=== PATIENT | female | born 1985 | race African-American/Black ===

== ENCOUNTER 2020-10-03 14:07 | Emergency (ER) | payer OTHER ==
[~2020-10-03] VITALS: Ht 172.7 cm; Wt 77.0 kg
[2020-10-03] MEDS ORDERED: HYDROCODONE/ACETAMINOPHEN 5/325MG TABLET PO ONE (16:30)
[2020-10-03] MEDS ORDERED: HYDR-4346 MT (18:28)
[2020-10-03 18:41] VITALS: BP 120/78
== END 2020-10-03 18:41 | disposition home or self-care (01) ==
LOC: ER 14:07
DX: S13.4XXA Sprain of ligaments of cervical spine, initial encounter (principal); M25.561 Pain in right knee; M25.571 Pain in right ankle and joints of right foot; M54.5 Low back pain; M79.604 Pain in right leg; V98.8XXA Other specified transport accidents, initial encounter; Y93.89 Activity, other specified; Y92.89 Other specified places as the place of occurrence of the external cause; Y99.8 Other external cause status
CPT/HCPCS: 72040; 73560; 73600; 99284